=== PATIENT | male | born 1970 | race Caucasian/White ===

== ENCOUNTER 2017-08-13 18:16 | Emergency (ER) | payer OTHER ==
[~2017-08-13] VITALS: Ht 170.2 cm; Wt 88.5 kg
--- NOTE | ~2017-08-13 | EKG ---
[address] [address] ELECTROCARDIOGRAM REPORT Name: PEPESARABJIT Room #: DEP ARABELLA Carroll#: [id number] Admission: 08/13/17 Attend Phys: Discharge: 08/13/17 Date of : 72 Report #: [id number] THIS REPORT FOR: //name// [facility] ED Test Date: 2017-08-13 Test Time: 18:26:24 Pat Name: SARABJIT CANTU Department: Room: Gender: [employer] Supervisor: SAAD : 1970 Requested By: Zainab Simons Order Number: [id number] MD: Evangelista Serna Measurements Intervals [place] Rate: 109 P: 42 MT: 175 QRS: 33 QRSD: 99 T: 32 QT: 326 QTc: 440 Interpretive Statements Sinus tachycardia No previous ECG available for comparison Electronically Signed On 08-14-2017 9:56:53 CDT by Evangelista Serna [email or web address] <ELECTRONICALLY SIGNED> By: Evangelista Serna MD 08/14/17 [id number] 1826 1826 Evangelista [email or web address] MD /EPI
[2017-08-13 18:38] LABS: BASOPHILS 0.5 % (0.0-2.0); EOSINOPHILS 0.9 % (0.0-3.0); HEMATOCRIT 42.7 % (42.0-52.0); HEMOGLOBIN 14.4 gm/dL (14.0-18.0); LYMPHOCYTES 31.3 % (24.0-44.0); MCH 31.5 pg (26.0-34.0); MCHC 33.8 g/dL (28.0-37.0); MCV 93.2 fL (80.0-100.0); MONOCYTES 9.7 % (1.0-8.0); PLATELET COUNT 309 thou/uL (150-400); POLYS 57.6 % (36.0-66.0); RBC 4.58 mil/uL (4.50-6.00); RDW 13.8 % (10.5-14.5); WBC 8.7 thou/uL (4.0-11.0)
[2017-08-13 18:52] LABS: ANION GAP 9 mmol/L (7-16); BUN 16 mg/dL (7-18); CALCIUM 9.5 mg/dL (8.5-10.1); CHLORIDE 104 mmol/L (98-107); CO2 27 mmol/L (21-32); GLUCOSE 127 mg/dL (74-106); POTASSIUM 3.3 mmol/L (3.5-5.1); SODIUM 140 mmol/L (136-145)
[2017-08-13 18:54] LABS: TROPONIN-I < 0.04 ng/mL (<0.06)
[2017-08-13] MEDS ORDERED: ATENOLOL 100MG100 MG PO (19:16)
[2017-08-13] MEDS ORDERED: NORVASC10 MG PO (19:16)
[2017-08-13] MEDS ORDERED: HYDROCHLOROTHIA25 M2 PO (19:17)
[2017-08-13] MEDS ORDERED: ADDERALL 30 MG30 MG PO (19:17)
[2017-08-13] MEDS ORDERED: ZOCOR20 MG PO (19:17)
[2017-08-13 20:34] LABS: URINE BILIRUBIN NEGATIVE (Negative); URINE BLOOD NEGATIVE (Negative); URINE CLARITY CLEAR; URINE COLOR YELLOW; URINE GLUCOSE-RANDOM* NEGATIVE (Negative); URINE KETONES NEGATIVE (Negative); URINE LEUKOCYTES-REFLEX NEGATIVE (Negative); URINE NITRITE-REFLEX NEGATIVE (Negative); URINE PROTEIN (DIPSTICK) NEGATIVE (Negative); URINE SPECIFIC GRAVITY <= 1.005 (1.005-1.035); URINE UROBILINOGEN 0.2 E.U./dl (0.2-1.0)
[2017-08-13 20:41] VITALS: BP 138/94
[2017-08-13 20:42] LABS: AMP/METHAMP POSITIVE (Negative); BARBITURATES Negative (Negative); BENZODIAZEPINES Negative (Negative); COCAINE Negative (Negative); METHADONE Negative (Negative); OPIATES Negative (Negative); PCP Negative (Negative)
== END 2017-08-13 20:43 | disposition home or self-care (01) ==
LOC: ER 18:16
PROVIDERS: Emergency Medicine; Physician Assistant
DX: R07.9 Chest pain, unspecified (principal)